=== PATIENT | female | born 1985 | race Caucasian/White ===

== ENCOUNTER → 2016-04-16 | Outpatient (CLI) | payer BC ==
--- NOTE | 2016-04-17 06:14 | REP ---
Clinical: Acute pain . Technique: AP, lateral, bilateral oblique views left ankle . Findings: Lateral soft tissue swelling noted. No acute fracture or dislocation. Skeletal structures and joint spaces are intact and normal. Ankle mortise appears stable. No subcutaneous emphysema or radiodense foreign body. Impression: Lateral swelling. No acute fracture or dislocation. Signed by Boom Sewell MD 04/17/2016 06:05 A
== END ==
LOC: M LRY 20:30
PROVIDERS: ATTEND Physician Assistant
DX: M25.572 Pain in left ankle and joints of left foot (principal); M25.472 Effusion, left ankle